=== PATIENT | female | born 1960 | race Caucasian/White ===

== ENCOUNTER 2022-05-05 10:52 | Emergency (ER) | payer BC ==
[2022-05-05 10:58] VITALS: BP 153/63; PULSE 83; RESP 18; TEMP 97.9
[2022-05-05] MEDS ORDERED: ONDANSETRON 4 MG/2 ML VIAL IVP STA ×2 (11:12→12:44)
--- NOTE | 2022-05-05 11:17 | ED ---
General Adult HPI - General Chief complaint: GI Bleed Stated complaint: Blood in stool Time Seen by Provider: 05/05/22 11:02 Source: patient, RN notes reviewed Mode of arrival: ambulatory Limitations: no limitations - History of Present Illness Initial comments: Patient is a 62-year-old female presents to the emergency room at the direction of her primary care provider with complaints of abdominal pain and diarrhea ongoing for the last 4 days. She reports that she has had loose stools and abdominal cramping along with lower left quadrant tenderness, with some generalized weakness. She reports occasional nausea but no emesis. She states th at her stools had bright red blood with occasional clots and one day of black tarry school stools with transition back to diarrhea with bright red blood. She denies any history of previous GI bleed; she has known external hemorrhoids. She denies any previous history of diverticulitis or been advised that she has diverticulosis. She denies any recent exposure to COVID or influenza. She denies any unintentional weight loss, rectal pain, fevers, chills, chest pain, or shortness of breath. She has a past medical history significant for COPD and osteoarthritis. She had a colonoscopy approximately 6 years ago which she had polyps removed; she was unable to complete a five-year follow-up due to john vailability of her GI provider. She denies any other complaints or concerns at this time. - Related Data Home Medications Medication Instructions Recorded Confirmed Albuterol Inhaler [Ventolin Hfa 2 puff INHALATION RT-QID 05/05/22 05/05/22 Inhaler] Budesonide-Formot 160-4.5 Mcg 2 puff INHALATION RT-BID 05/05/22 05/05/22 [Symbicort 160-4.5 Mcg Inhaler] Cholecalciferol [Vitamin D3 (25 25 mcg PO DAILY 05/05/22 05/05/22 Mcg = 1000 Iu)] Furosemide [Lasix] 20 mg PO DAILY PRN 05/05/22 05/05/22 Magnesium Oxide [Magnesium] 500 mg PO DAILY 05/05/22 05/05/22 Vitamin B Complex 1 cap PO DAILY 05/05/22 05/05/22 Previous Rx's Medication Instructions Recorded Hydrocortisone Suppository 25 mg RECTAL BID PRN 5 Days #10 05/05/22 [Anusol-Hc] suppositor Ondansetron Odt [Zofran Odt] 4 mg PO Q8HR PRN 7 Days #21 tab 05/05/22 Allergies Allergy/AdvReac Type Severity Reaction Status Date / Time clindamycin AdvReac Rash/Hives Verified 05/05/22 13:08 hydrocodone AdvReac Swelling Verified 05/05/22 13:08 of legs and feet iodine AdvReac Nausea & Verified 05/05/22 13:08 Vomiting Penicillins AdvReac Rash/Hives Verified 05/05/22 13:08 Review of Systems ROS Statement: Those systems with pertinent positive or pertinent negative responses have been documented in the HPI. ROS Other: All systems not noted in ROS Statement are negative. Past Medical History Past Medical History: COPD, Osteoarthritis (OA) Past Surgical History: Hysterectomy Past Psychological History: No Psychological Hx Reported Smoking Status: Former smoker Past Alcohol Use History: None Reported Past Drug Use History: None Reported General Exam Limitations: no limitations General appearance: alert, in no apparent distress Head exam: Present: atraumatic, normocephalic, normal inspection Eye exam: Present: normal appearance, PERRL, EOMI. Absent: scleral icterus, conjunctival injection, periorbital swelling ENT exam: Present: normal exam, mucous membranes moist Neck exam: Present: normal inspection Respiratory exam: Present: normal lung sounds bilaterally. Absent: respiratory distress, wheezes, rales, rhonchi, stridor Cardiovascular Exam: Present: regular rate, normal rhythm, normal heart sounds. Absent: systolic murmur, diastolic murmur, rubs, gallop, clicks GI/Abdominal exam: Present: soft, tenderness (LLQ), normal bowel sounds. Absent: distended Rectal exam: Present: normal rectal tone, hemorrhoids, tenderness, other (perianal irritation ). Absent: mass Extremities exam: Present: normal inspection. Absent: pedal edema, joint swelling Neurological exam: Present: alert, oriented X3, CN II-XII intact Psychiatric exam: Present: normal affect, normal mood Skin exam: Present: warm, dry, intact, normal color. Absent: rash Course Vital Signs 05/05/22 10:53 Temperature 97.9 F Pulse Rate 83 Respiratory 18 Rate Blood Pressure 153/63 O2 Sat by Pulse 95 Oximetry Medical Decision Making - Medical Decision Making Rectal examination deferred at this time. Will check CBC, CMP, stool for occult blood along with computed tomography scan of the abdomen pelvis. High probability for diverticulitis. Patient with iodine intolerance causing nausea and vomiting will premedicate with Zofran. CT the abdomen showed unspecified colitis. No evidence of obstruction or mass. CBC normal; no evidence of anemia or leukocytosis. CMP consistent with mild dehydration. Reports that diarrhea and urgency improved after dose of Zofran. Covered and influenza swabs negative. Due to lack of anemia and leukocytosis on imaging rectal exam completed showing noninflamed external hemorrhoids mild anal irritation and inflammation of internal hemorrhoids. No stool in rectal vault. No gross blood on digital rectal exam. Her IV infiltrated and she declined reinsertion for IV fluids to be administered. She is agreeable for discharge home with close follow-up with her primary care provider. Will give Zofran to utilize as needed along with hydrocor tisone suppositories. Return parameters discussed. Encouraged follow up with GI for repeat colonoscopy. Case discussed with Dr. Jhaveri - Lab Data Result diagrams: 05/05/22 11:30 05/05/22 11:30 Lab Results 05/05/22 05/05/22 05/05/22 Range/Units 11:30 11:30 11:30 WBC 7.8 (3.8-10.6) k/uL RBC 4.61 (3.80-5.40) m/uL Hgb 15.1 (11.4-16.0) gm/dL Hct 43.1 (34.0-46.0) % MCV 93.5 (80.0-100.0) fL MCH 32.7 (25.0-35.0) pg MCHC 34.9 (31.0-37.0) g/dL RDW 12.7 (11.5-15.5) % Plt Count 273 (150-450) k/uL MPV 8.0 Neutrophils % 69 % Lymphocytes % 16 % Monocytes % 5 % Eosinophils % 8 % Basophils % 2 % Neutrophils # 5.3 (1.3-7.7) k/uL Lymphocytes # 1.2 (1.0-4.8) k/uL Monocytes # 0.4 (0-1.0) k/uL Eosinophils # 0.6 (0-0.7) k/uL Basophils # 0.1 (0-0.2) k/uL Sodium 139 (137-145) mmol/L Potassium 4.2 (3.5-5.1) mmol/L Chloride 109 H (98-107) mmol/L Carbon Dioxide 21 L (22-30) mmol/L Anion Gap 9 mmol/L BUN 20 H (7-17) mg/dL Creatinine 0.76 (0.52-1.04) mg/dL Est GFR (CKD-EPI)AfAm >90 (>60 ml/min/1.73 sqM) Est GFR (CKD-EPI)NonAf 85 (>60 ml/min/1.73 sqM) Glucose 103 H (74-99) mg/dL Calcium 9.0 (8.4-10.2) mg/dL Total Bilirubin 0.6 (0.2-1.3) mg/dL AST 26 (14-36) U/L ALT 23 (4-34) U/L Alkaline Phosphatase 100 (38-126) U/L Total Protein 7.0 (6.3-8.2) g/dL Albumin 4.3 (3.5-5.0) g/dL Coronavirus (PCR) (Not Detectd) Influenza Type A RNA Not Detected (Not Detectd) Influenza Type B (PCR) Not Detected (Not Detectd) 05/05/22 Range/Units 11:30 WBC (3.8-10.6) k/uL RBC (3.80-5.40) m/uL Hgb (11.4-16.0) gm/dL Hct (34.0-46.0) % MCV (80.0-100.0) fL MCH (25.0-35.0) pg MCHC (31.0-37.0) g/dL RDW (11.5-15.5) % Plt Count (150-450) k/uL MPV Neutrophils % % Lymphocytes % % Monocytes % % Eosinophils % % Basophils % % Neutrophils # (1.3-7.7) k/uL Lymphocytes # (1.0-4.8) k/uL Monocytes # (0-1.0) k/uL Eosinophils # (0-0.7) k/uL Basophils # (0-0.2) k/uL Sodium (137-145) mmol/L Potassium (3.5-5.1) mmol/L Chloride (98-107) mmol/L Carbon Dioxide (22-30) mmol/L Anion Gap mmol/L BUN (7-17) mg/dL Creatinine (0.52-1.04) mg/dL Est GFR (CKD-EPI)AfAm (>60 ml/min/1.73 sqM) Est GFR (CKD-EPI)NonAf (>60 ml/min/1.73 sqM) Glucose (74-99) mg/dL Calcium (8.4-10.2) mg/dL Total Bilirubin (0.2-1.3) mg/dL AST (14-36) U/L ALT (4-34) U/L Alkaline Phosphatase (38-126) U/L Total Protein (6.3-8.2) g/dL Albumin (3.5-5.0) g/dL Coronavirus (PCR) Not Detected (Not Detectd) Influenza Type A RNA (Not Detectd) Influenza Type B (PCR) (Not Detectd) - Radiology Data Radiology results: report reviewed, image reviewed Disposition Clinical Impression: Hemorrhoids, Colitis Disposition: HOME SELF-CARE Condition: Fair Instructions (If sedation given, give patient instructions): Hemorrhoids (ED), Colitis (ED) Prescriptions: Hydrocortisone Suppository [Anusol-Hc] 25 mg RECTAL BID PRN 5 Days #10 suppositor PRN Reason: Hemorrhoids Ondansetron Odt [Zofran Odt] 4 mg PO Q8HR PRN 7 Days #21 tab PRN Reason: Nausea Is patient prescribed a controlled substance at d/c from ED?: No Referrals: Rachel Lepe MD [Primary Care Provider] - 1-2 days Time of Disposition: 14:17
[2022-05-05 11:44] LABS: Basophils # (A) 0.1 k/uL (0-0.2); Basophils % (A) 2 %; Eosinophils # (A) 0.6 k/uL (0-0.7); Eosinophils % (A) 8 %; HCT 43.1 % (34.0-46.0); HGB 15.1 gm/dL (11.4-16.0); Lymphocytes # (A) 1.2 k/uL (1.0-4.8); Lymphocytes % (A) 16 %; MCH 32.7 pg (25.0-35.0); MCHC 34.9 g/dL (31.0-37.0); MCV 93.5 fL (80.0-100.0); Monocytes # (A) 0.4 k/uL (0-1.0); Monocytes % (A) 5 %; Neutrophils # (A) 5.3 k/uL (1.3-7.7); Neutrophils % (A) 69 %; Platelet Count 273 k/uL (150-450); RBC 4.61 m/uL (3.80-5.40); RDW 12.7 % (11.5-15.5); WBC 7.8 k/uL (3.8-10.6)
[2022-05-05 11:59] LABS: ALT 23 U/L (4-34); AST 26 U/L (14-36); African American GFR (CKD) >90 (>60 ml/min/1.73 sqM); Albumin 4.3 g/dL (3.5-5.0); Alkaline Phosphatase 100 U/L (38-126); Anion Gap 9 mmol/L; Blood Urea Nitrogen 20 mg/dL (7-17); Carbon Dioxide 21 mmol/L (22-30); Chloride 109 mmol/L (98-107); Glucose 103 mg/dL (74-99); Non-African American GFR(CKD) 85 (>60 ml/min/1.73 sqM); Potassium 4.2 mmol/L (3.5-5.1); Sodium 139 mmol/L (137-145); Total Bilirubin 0.6 mg/dL (0.2-1.3)
--- NOTE | 2022-05-05 13:43 | CT ---
EXAMINATION TYPE: CT abdomen pelvis w con DATE OF EXAM: 05/05/2022 COMPARISON: None HISTORY: blood in stool CT DLP: 1520.4 mGycm CONTRAST: CT scan of the abdomen and pelvis is performed without Oral Contrast and with IV Contrast, patient in jected with 100 mL of Isovue 300. FINDINGS: LUNG BASES-: No visible nodule. No infiltrate. LIVER/GB: No calcified gallstones. There is evidence of underlying hepatic steatosis. No space occ upying hepatic lesion. Biliary tree is of normal caliber. PANCREAS: No inflammation. No distinct mass. SPLEEN: No splenic enlargement. No lesion seen. ADRENALS: No nodule. No thickening. KIDNEYS/BLADDER: No hydronephrosis. No nephrolithiasis. No distinct lytic renal mass. Parapelvic cysts are noted bilaterally. Urinary bladder grossly unremarkable. BOWEL: There is wall thickening of the colon from the splenic flexure through the rectosigmoid region felt to reflect nonspecific colitis with infectious and inflammatory etiologies considered. Less lik rodrigo would be ischemic causes. GENITAL ORGANS: No gross abnormality. LYMPH NODES: No greater than 1cm abdominal or pelvic lymph nodes are appreciated. AORTA: No significant abnormality. OSSEOUS STRUCTURES: No significant abnormality is seen. OTHER: No significant additional abnormality is seen. IMPRESSION: 1. Nonspecific colitis. 2. Fatty liver. 3. Parapelvic renal cysts.
== END 2022-05-05 14:34 | disposition home or self-care (01) ==
LOC: EC 10:52
DX: K52.9 Noninfective gastroenteritis and colitis, unspecified (principal); K64.9 Unspecified hemorrhoids; J44.9 Chronic obstructive pulmonary disease, unspecified; M19.90 Unspecified osteoarthritis, unspecified site; Z87.891 Personal history of nicotine dependence; Z79.51 Long term (current) use of inhaled steroids; Z79.899 Other long term (current) drug therapy
CPT/HCPCS: 36415; 80053; 85025; 87502; 87635; 74177; 99285; 96374; 96376; J2405; Q9967

== ENCOUNTER 2022-05-26 09:11 | Day surgery (SDC) | payer BC ==
[2022-05-22 14:37] VITALS: BMI 34.3
[~2022-05-26 09:11] MED LIST: LACTATED RINGERS 1,000 ML IV SCH; LIDOCAINE 1% (10MG/ML) FOR IV START INTRADERMA PRN; ONDANSETRON 4 MG/2 ML VIAL IVP PRN
[2022-05-26] MEDS ORDERED: LIDOCAINE 1% (10MG/ML) FOR IV START INTRADERMA ONE (09:16)
[2022-05-26 10:06] VITALS: RESP 16; TEMP 97
[2022-05-26] MEDS ORDERED: PROPOFOL 10 MG/ML 20 ML VIAL IV ONE (10:53)
[2022-05-26] MEDS ORDERED: LIDOCAINE 2% INJ 20 MG/ML (2 ML VIAL) ONE (10:53)
--- NOTE | 2022-05-26 11:10 | P.PCN ---
Date of Procedure: 05/26/22 Procedure(s) Performed: BRIEF HISTORY: Patient is a 62-year-old pleasant white female scheduled for an elective colonoscopy as a part of chronic diarrhea for the last 1 month duration. She is having bowel movements anywhere from 10-12 a day which are loose to watery in consistency with some blood in the stool.' PROCEDURE PERFORMED: Colonoscopy with multiple biopsies. PREOPERATIVE DIAGNOSIS: Chronic diarrhea of 1 month duration. IV sedation per Anesthesia. PROCEDURE: After informed consent was obtained, the patient, was brought into the endoscopy unit. IV sedation was administered by Anesthesia under continuous monitoring. Digital rectal examination was normal. Initially the Olympus CF-160 flexible video colonoscope was then inserted in the rectum, gradually advanced into the cecum without any difficulty. Careful examination was performed as the scope was gradually being withdrawn. Ileocecal valve and the appendiceal orifice were visualized and appeared normal. Prep was excellent. Mucosa of the cecum, ascending colon, transverse colon, appeared normal. Mucosa of the descending colon, sigmoid colon, and rectum had erythema friability and granularity up to 50 cm from the anal verge consistent with left sided colitis and multiple biopsies were done from this area.. Retroflexion was performed in the rectum and no lesions were seen. The patient tolerated the procedure well. IMPRESSION: Mucosal erythema friability and granularity involving the left colon up to 50 cm from the anal verge consistent with left-sided ulcerative colitis status post multiple biopsies Rest of the colon appeared normal. RECOMMENDATIONS: Findings of this examination were discussed with the patient as well as her family. She was advised to follow with the biopsy results. She will be seen in office in 2 weeks.
[2022-05-26 11:38] VITALS: BP 119/66; PULSE 68
== END 2022-05-26 11:58 | disposition home or self-care (01) ==
LOC: ORWHC2ENDO 09:11
PROVIDERS: ATTEND Internal Medicine Gastroenterology
DX: K52.9 Noninfective gastroenteritis and colitis, unspecified (principal); Z86.010 Personal history of colon polyps; J44.9 Chronic obstructive pulmonary disease, unspecified; G47.33 Obstructive sleep apnea (adult) (pediatric); Z88.0 Allergy status to penicillin; Z88.3 Allergy status to other anti-infective agents; Z88.5 Allergy status to narcotic agent; Z91.030 Bee allergy status; Z79.51 Long term (current) use of inhaled steroids; Z79.899 Other long term (current) drug therapy; Z87.891 Personal history of nicotine dependence
CPT/HCPCS: 88305; 45380; J2704; J2001

== ENCOUNTER → 2024-12-26 | Outpatient (CLI) | payer BC | LOC: CPPFTMAIN 16:38 | PROVIDERS: ATTEND Internal Medicine Critical Care Medicine | DX: J44.9 Chronic obstructive pulmonary disease, unspecified (principal); Z91.030 Bee allergy status; Z88.0 Allergy status to penicillin; Z88.5 Allergy status to narcotic agent; Z91.041 Radiographic dye allergy status; Z88.1 Allergy status to other antibiotic agents | CPT/HCPCS: 94060; 94726; 94729 ==

== ENCOUNTER → 2024-12-29 | Outpatient (CLI) | payer BC ==
--- NOTE | 2024-12-29 17:24 | CA ---
Transthoracic Echo Report Name: Meredith Guzman Age: 64 Gender: F : 1960 Exam Date: 12/29/2024 13:06 Exam Location: [facility] Ht (in): 64 Wt (lb): 200 Ordering Physician: Jose Guadalupe Miner DO Attending/Referring Phys: Area Manager Edna Camejo RDCS Procedure CPT: Indications: I27.20 Cardiac Hx: Technical Quality: Fair Contrast 1: Total Dose (mL): Contrast 2: Total Dose (mL): MEASUREMENTS (Male / Female) Normal Values 2D ECHO LV Diastolic Diameter PLAX 3.9 cm 4.2 - 5.9 / 3.9 - 5.3 cm LV Systolic Diameter PLAX 2.7 cm IVS Diastolic Thickness 1.0 cm 0.6 - 1.0 / 0.6 - 0.9 cm LVPW Diastolic Thickness 0.9 cm 0.6 - 1.0 / 0.6 - 0.9 cm LV Relative Wall Thickness 0.5 RV Internal Dim ED PLAX 2.9 cm LA Systolic Diameter LX 2.6 cm 3.0 - 4.0 / 2.7 - 3.8 cm LV Diastolic Volume MOD 4C 73.6 cm??? LV Systolic Volume MOD 4C 22.7 cm??? LV Ejection Fraction MOD 4C 69.2 % LV Cardiac Index MOD 4C 1901.6 cm???/min???m??? LV Diastolic Length 4C 8.3 cm LV Systolic Length 4C 6.2 cm LV Diastolic Volume MOD 2C 56.3 cm??? LV Systolic Volume MOD 2C 19.2 cm??? LV Ejection Fraction MOD 2C 65.9 % LV Cardiac Index MOD 2C 1385.6 cm???/min???m??? LV Diastolic Length 2C 8.6 cm LV Systolic Length 2C 6.8 cm LA Volume 34.4 cm??? 18 - 58 / 22 - 52 cm??? LA Volume Index 16.7 cm???/m??? 16 - 28 cm???/m??? M-MODE Aortic Root Diameter MM 3.0 cm DOPPLER AV Peak Velocity 140.2 cm/s AV Peak Gradient 7.9 mmHg MV Area PHT 2.8 cm??? Mitral E Point Velocity 89.0 cm/s Mitral A Point Velocity 99.8 cm/s Mitral E to A Ratio 0.9 MV Deceleration Time 275.1 ms TR Peak Velocity 257.7 cm/s TR Peak Gradient 26.6 mmHg Right Ventricular Systolic Press 31.6 mmHg FINDINGS Left Ventricle Left ventricular ejection fraction is estimated at 55-60 %. Left ventricular cavity size normal. Left ventricular wall thickness normal. Right Ventricle Normal right ventricular size and function. Right ventricular systolic pressure within normal limits. Right Atrium Normal right atrial size. No right atrial thrombus or mass seen. Left Atrium Normal left atrial size. No left atrial thrombus or mass present. Mitral Valve Structurally normal mitral valve. No evidence for mitral valve prolapse. No mitral stenosis. Trace to mild mitral regurgitation. Aortic Valve Trileaflet aortic valve. No aortic valve stenosis or regurgitation. Tricuspid Valve Structurally normal tricuspid valve. Mild tricuspid regurgitation. Pulmonic Valve Pulmonic valve not well visualized. Pericardium No pericardial effusion. Aorta Normal size aortic root and proximal ascending aorta. CONCLUSIONS LVEF at 55-60 %. No obvious regional wall motion abnormality Normal right ventricular size and function. No obvious valve dysfunction No pericardial effusion. Previewed by: Dr Elvis Hdz (Electronically Signed) Final Date: 29 December 2024 17:24
== END | disposition home or self-care (01) ==
LOC: RADECHMAIN 12:42
PROVIDERS: ATTEND Internal Medicine Critical Care Medicine
DX: I27.20 Pulmonary hypertension, unspecified (principal); I07.1 Rheumatic tricuspid insufficiency
CPT/HCPCS: 93306